=== PATIENT | female | born 1960 | race Caucasian/White ===

== ENCOUNTER 2018-07-30 08:48 | Emergency (ER) | payer OTHER ==
[2018-07-30] MEDS ORDERED: SOD CHLORIDE 0.9% 1,000 ML IV (09:12)
[2018-07-30] MEDS ORDERED: KETOROLAC 30 MG INJ IV (09:12)
[2018-07-30 09:39] LABS: URINE PH (Dip) POC 6.5 (5.0-8.5)
[2018-07-30 09:39] LABS: URINE BLOOD (Dip) POC 1+ (NEGATIVE); URINE GLUCOSE (Dip) POC Negative (NEGATIVE); URINE KETONES (Dip) POC Negative (NEGATIVE); URINE LEUKOCYTE EST (Dip) POC 3+ (NEGATIVE); URINE NITRITE (Dip) POC Positive (NEGATIVE); URINE TOTAL PROTEIN POC Negative (NEGATIVE)
[2018-07-30] MEDS: NAPROXEN 500 MG TAB PO (09:44)
[2018-07-30] MEDS ORDERED: LIDOCAINE 1% (MDV) 20 ML INJ SC (10:00)
[2018-07-30] MEDS: PHENAZOPYRIDINE 100 MG TAB PO (10:08)
[2018-07-30] MEDS: CEFTRIAXONE 1 GM INJ IM (10:08)
[2018-07-30] MEDS: LIDOCAINE 1% (MPF) 30 ML INJ SC (10:17)
== END 2018-07-30 11:00 | disposition home or self-care (01) ==
LOC: FTE 08:48
DX: N39.0 Urinary tract infection, site not specified (principal); I10 Essential (primary) hypertension
CPT/HCPCS: 81003; 87086; 96372; 99284-25

== ENCOUNTER 2018-08-27 09:34 | Emergency (ER) | payer OTHER ==
[2018-08-27 11:46] LABS: ADD UMIC YES; UR ASCORBIC ACID NEGATIVE (NEGATIVE); UR BACTERIA MODERATE /HPF (NONE SEEN); UR BILIRUBIN (Dip) NEGATIVE (NEGATIVE); UR BLOOD (Dip) 1+ mg/dL (NEGATIVE); UR CLARITY CLOUDY (CLEAR); UR COLOR YELLOW (YELLOW); UR GLUCOSE (Dip) NEGATIVE (NEGATIVE); UR KETONES (Dip) NEGATIVE (NEGATIVE); UR LEUKOCYTE ESTERASE (Dip) 3+ Leu/ul (NEGATIVE); UR NITRITE (Dip) NEGATIVE (NEGATIVE); UR NONSQUAMOUS EPITHELIAL CELL 2 /HPF (NONE SEEN); UR RBC 12 /HPF (0-5); UR SPECIFIC GRAVITY (Dip) 1.009 (1.003-1.030); UR SQUAMOUS EPITHELIAL CELL MANY /HPF (FEW); UR TOTAL PROTEIN (Dip) NEGATIVE (NEGATIVE); UR UROBILINOGEN (Dip) NEGATIVE (NEGATIVE); UR WBC > 182 /HPF (0-5)
[2018-08-27] MEDS: CEPHALEXIN 500 MG CAP PO (12:19)
[2018-08-27] MEDS: PHENAZOPYRIDINE 100 MG TAB PO (12:19)
== END 2018-08-27 12:26 | disposition home or self-care (01) ==
LOC: FTE 09:34
DX: N39.0 Urinary tract infection, site not specified (principal); I10 Essential (primary) hypertension
CPT/HCPCS: 81001; 82962; 93005; 99284-25

== ENCOUNTER 2018-10-01 08:19 | Emergency (ER) | payer OTHER ==
[2018-10-01 09:27] LABS: URINE BLOOD (Dip) POC 2+ (NEGATIVE); URINE GLUCOSE (Dip) POC Negative (NEGATIVE); URINE KETONES (Dip) POC Negative (NEGATIVE); URINE LEUKOCYTE EST (Dip) POC Trace (NEGATIVE); URINE NITRITE (Dip) POC Negative (NEGATIVE); URINE TOTAL PROTEIN POC 1+ (NEGATIVE)
== END 2018-10-01 10:37 | disposition home or self-care (01) ==
LOC: E/R 08:19
DX: N39.0 Urinary tract infection, site not specified (principal); I10 Essential (primary) hypertension
CPT/HCPCS: 81003; 99283